=== PATIENT | male | born 1975 | race Caucasian/White ===

== ENCOUNTER 2020-01-19 12:04 | Emergency (ER) | payer OTHER ==
[~2020-01-19] VITALS: Ht 195.6 cm; Wt 124.7 kg
[2020-01-19] MEDS ORDERED: CLONIDINE HCL0.1 M1 PO (12:10)
[2020-01-19] MEDS ORDERED: VYVANSE70 MG PO (12:10)
[2020-01-19 12:26] LABS: ABSOLUTE EOSINOPHILS 0.1 thou/uL (0.0-0.7); ABSOLUTE LYMPHOCYTES 1.7 thou/uL (0.8-5.3); ABSOLUTE MONOCYTES 0.6 thou/uL (0.0-1.2); ABSOLUTE NEUTROPHILS 3.2 thou/uL (1.6-8.1); BASOPHILS 0.9 %; EOSINOPHILS 1.6 %; HEMATOCRIT 49.2 % (42.0-52.0); MCH 32.1 pg (26.0-34.0); MCHC 34.5 g/dL (28.0-37.0); MCV 92.8 fL (80.0-100.0); MONOCYTES 11.1 %; MPV 8.7 fl. (7.2-11.1); NUCLEATED RBCS 0 /100WBC; PLATELET COUNT* 218 thou/uL (150-400); POLYS 56.4 %; RDW-CV 12.9 % (10.5-14.5); WBC 5.6 thou/uL (4.0-11.0)
[2020-01-19 12:37] LABS: ANION GAP 6 mmol/L (7-16); BUN 12 mg/dL (7-18); CALCIUM 8.7 mg/dL (8.5-10.1); CHLORIDE 106 mmol/L (98-107); CO2 32 mmol/L (21-32); CREATININE 1.2 mg/dL (0.6-1.3); GLUCOSE 99 mg/dL (70-99); POTASSIUM 4.2 mmol/L (3.5-5.1); SODIUM 144 mmol/L (136-145)
[2020-01-19 12:41] LABS: APTT 27.9 Seconds (25.0-31.3); INR 1.1; PROTIME 11.4 Seconds (9.20-11.50)
[2020-01-19 12:49] LABS: ALBUMIN 3.9 g/dL (3.4-5.0); ALKALINE PHOSPHATASE 81 U/L (46-116); CHOLESTEROL 146 mg/dL (<200); CK-MB MASS 1.8 ng/mL (<0.5-3.6); HDL CHOLESTEROL 47 mg/dL (>40); LDL CHOLESTEROL 89 mg/dL (<100); MAGNESIUM 1.9 mg/dL (1.8-2.4); SERUM ASSESSMENT Clear; SGOT 23 U/L (15-37); SGPT 36 U/L (30-65); TC:HDL 3.1 Ratio (Not establshd); TOTAL BILIRUBIN 0.8 mg/dL (<0.1-1.0); TRIGLYCERIDE 50 mg/dL (<150); VLDL 10 mg/dL (<40)
[2020-01-19 14:24] LABS: ESR (SEDRATE) 0 mm/hr (0-15)
[2020-01-19] MEDS ORDERED: DOXYCYCLINE 10100 MG PO ×2 (16:37→16:40)
[2020-01-19] MEDS ORDERED: ACYCLOVIR 800800 MG PO ×2 (16:37→16:40)
--- NOTE | 2020-01-19 17:13 | EKG ---
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
[2020-01-19] MEDS ORDERED: PREDNISONE 10 M10 M1 PO (17:41)
[2020-01-19 17:53] VITALS: BP 130/94
[2020-01-20 02:07] LABS: GLYCOHEMOGLOBIN (HGB A1C) 5.3 % (4.8-5.6)
== END 2020-01-19 17:54 | disposition home or self-care (01) ==
LOC: M.ERS 12:04
PROVIDERS: Nurse Practitioner Family
DX: G51.0 Bell's palsy (principal); Z20.828 Contact with and (suspected) exposure to other viral communicable diseases; Z79.899 Other long term (current) drug therapy